=== PATIENT | male | born 1955 | race Caucasian/White ===

== ENCOUNTER 2023-06-15 12:16 | Outpatient (CLI) | payer MEDICARE ==
--- NOTE | 2023-06-15 13:17 | XRAY Report ---
PROCEDURE: Finger(s) RT INDICATIONS: RIGHT THUMB PAIN TECHNIQUE: AP hand, 2 views of the first finger(s) acquired. COMPARISON: None. FINDINGS: Bones: No fractures or dislocations. No suspicious bony lesions. Mild first CMC degenerative narr owing with minimal subchondral sclerosis. Remaining joints demonstrate minimal scattered areas of IP narrowing. No distinct erosions. Soft tissues: No suspicious soft tissue calcifications or masses. 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 Reviewed by: Cheri Miller MD on 06/15/2023 1:16 PM PST Approved by: Cheri Miller MD on 06/15/2023 1:16 PM PST Station ID: [id number]
== END 2023-06-15 12:17 | disposition home or self-care (01) ==
LOC: DI 12:16
PROVIDERS: ATTEND Physician Assistant
DX: M18.11 Unilateral primary osteoarthritis of first carpometacarpal joint, right hand (principal)